=== PATIENT | male | born 1985 | race Caucasian/White ===

== ENCOUNTER 2023-07-07 08:27 | Day surgery (SDC) | payer OTHER ==
[~2023-07-07] VITALS: Ht 177.8 cm; Wt 71.7 kg
[2023-07-07] VITALS (9 sets, daily range): BP systolic 118–161; BP diastolic 74–99; PULSE 60–70; RESP 10–16; TEMP 97.4; O2SAT 97–100
[~2023-07-07 08:27] MED LIST: ASCO-294 PO; GLUT500C7 PO; LIDOcaine 1% 30ml preserv. free vial ONE; MAGN100T PEG; MILK150C2 PO; MULT200T12 PO; OREGANO OIL PO; ZINC100T2 PO; cefazolin 2gm/D5W 100mL 100 ML IV ONE; cocaine 4% topical solution 4ml bottle ONE; epiNEPHrine 1 mg/ml 30ml MDV ONE; epiNEPHrine 1 mg/ml inj ONE; famotidine 20mg tablet PO ONE; mupirocin 2% ointment 22GM ONE; oxymetazoline 15 ML nasal spray NS ONE; ringers solution, lacted 1,000 ML IV SCH; tranexamic acid 100mg/ml inj. ONE
[2023-07-07] MEDS ORDERED: epiNEPHrine 1 mg/ml 30ml MDV SQ ONE (10:00)
[2023-07-07] MEDS ORDERED: mupirocin 2% cream 15gm TP ONE (10:00)
[2023-07-07] MEDS ORDERED: cocaine 4% topical solution 4ml bottle TP ONE (10:00)
[2023-07-07] MEDS ORDERED: oxymetazoline 15 ML nasal spray NS ONE (10:00)
[2023-07-07] MEDS ORDERED: LIDOcaine 1% w/EPI 1:100,000 30ml vial (MDV) IJ ONE (10:00)
[2023-07-07] MEDS ORDERED: fentaNYL/PF 50MCG/1 ML 2ML syringe ONE (10:39)
[2023-07-07] MEDS ORDERED: midazolam 1 mg/ML 2ml injection ONE (10:39)
[2023-07-07] MEDS ORDERED: LIDOcaine 2% (20mg/ml) 5ml vial ONE (10:39)
[2023-07-07] MEDS ORDERED: propofol inj 20 ML IV ONE (10:39)
[2023-07-07] MEDS ORDERED: ondansetron/PF 4mg/2ml inj ONE (10:40)
[2023-07-07] MEDS ORDERED: morphine 4 MG/ML inj SYRINge IV PRN (11:10)
[2023-07-07] MEDS ORDERED: hydrALAZINE 20mg/ml inj. IV PRN (11:10)
[2023-07-07] MEDS ORDERED: ondansetron/PF 4mg/2ml inj IV PRN (11:10)
[2023-07-07] MEDS ORDERED: ringers solution, lacted 1,000 ML IV SCH (11:10)
[2023-07-07] MEDS ORDERED: fentaNYL/PF 50MCG/1 ML 2ML syringe IV PRN ×2 (11:10)
[2023-07-07] MEDS ORDERED: labetalol 20mg/4ml (5mg/ml) syringe IV PRN (11:10)
[2023-07-07] MEDS ORDERED: morphine 2 MG/ML inj. syringe IV PRN (11:10)
[2023-07-07] MEDS ORDERED: acetaminophen 1,000mg/100ml IV 100 ML IV ONE (11:15)
[2023-07-07] MEDS ORDERED: salt irrigation nasal spray 45 ML SPRAY NS PRN (12:43)
[2023-07-07] MEDS ORDERED: mupirocin 2% nasal ointment 1gm UD NS SCH (13:00)
[2023-07-07] MEDS ORDERED: oxymetazoline 15 ML nasal spray NS SCH (20:00)
== END 2023-07-07 13:06 | disposition home or self-care (01) ==
LOC: PAS 08:27
PROVIDERS: ATTEND Otolaryngology
DX: J34.2 Deviated nasal septum (principal); J34.3 Hypertrophy of nasal turbinates; J34.89 Other specified disorders of nose and nasal sinuses; Z79.899 Other long term (current) drug therapy
CPT/HCPCS: 30140; 30520; 31240; 82948; A6402; J0131; J0171; J0690; J2250; J2405; J2704; J3010; J3490; J7030; J7050; J7120; Z7506; Z7508; Z7512; A4618; A6449; A7000